=== PATIENT | female | born 1940 | race Asian ===

== ENCOUNTER 2019-08-22 14:11 | Emergency (ER) | payer OTHER ==
[~2019-08-22] VITALS: Ht 134.6 cm; Wt 53.3 kg
[2019-08-22 14:52] VITALS: BP 171/75; Ht 134.6 cm; Wt 53.3 kg
== END 2019-08-22 18:35 | disposition home or self-care (01) ==
LOC: ED 14:11
DX: H66.92 Otitis media, unspecified, left ear (principal); H60.92 Unspecified otitis externa, left ear; I10 Essential (primary) hypertension; E11.9 Type 2 diabetes mellitus without complications

== ENCOUNTER 2019-09-06 10:21 | Emergency (ER) | payer OTHER ==
[~2019-09-06] VITALS: Ht 154.9 cm; Wt 52.2 kg
[2019-09-06 10:31] VITALS: BP 140/72; Ht 154.9 cm; Wt 52.2 kg
== END 2019-09-06 13:49 | disposition home or self-care (01) ==
LOC: ED 10:21
DX: H66.42 Suppurative otitis media, unspecified, left ear (principal); I10 Essential (primary) hypertension; E11.9 Type 2 diabetes mellitus without complications